=== PATIENT | male | born 1960 | race Caucasian/White ===

== ENCOUNTER 2017-11-25 17:30 | Inpatient (IN) | payer MEDICARE, OTHER ==
--- NOTE | 2017-11-25 17:41 | ED PDOC ---
Arrival/HPI - General Time Seen by Provider: 11/25/17 17:37 Historian: Patient - History of Present Illness Narrative History of Present Illness (Text): 11/25/17 17:41 This 57 yo male with pmh psychiatric illness for many year, presents to this ED by BLS for psychiatric admission. Patient stated he has been hearing voices for 3 days. Patient stated he was seen at [facility] this morning. Patient has not seen psychiatrist for several year, and he also stop Seroquel few years ago. Patient wants to be admitted to psychiatry department , and to be evaluated by psychiatrist. Patient denies HI, paranoia, or illegal drug use. Time/Duration: Other (see hpi) Context: Home Past Medical History - Provider Review Nursing Documentation Reviewed: Yes Family/Social History - Physician Review Nursing Documentation Reviewed: Yes Family/Social History: Other (noncontributory) Allergies/Home Meds Allergies/Adverse Reactions: Allergies Penicillins Allergy (Verified 11/25/17 17:42) SWELLING Home Medications: Home Meds Medication Instructions Recorded Confirmed Montelukast [Singulair] 10 mg PO DAILY 11/25/17 11/25/17 traMADol [Ultram] 50 mg PO TID 11/25/17 11/25/17 Review of Systems - Review of Systems Constitutional: Normal. absent: Fatigue, Weight Change, Fevers Eyes: Normal ENT: Normal Respiratory: Normal Cardiovascular: Normal Gastrointestinal: Normal Genitourinary Male: Normal Musculoskeletal: Normal Skin: Normal Neurological: Normal Endocrine: Normal Hemo/Lymphatic: Normal Psychiatric: Other (see hpi) Physical Exam Vital Signs Temp Pulse Resp BP Pulse Ox 11/25/17 17:52 97.7 F 64 20 160/87 H 96 Temperature: Afebrile Blood Pressure: Normal Pulse: Regular Respiratory Rate: Normal Appearance: Positive for: Well-Appearing, Non-Toxic, Comfortable Pain Distress: None Mental Status: Positive for: Alert and Oriented X 3 - Systems Exam Head: Present: Atraumatic, Normocephalic Pupils: Present: PERRL Extroacular Muscles: Present: EOMI Conjunctiva: Present: Normal Mouth: Present: Moist Mucous Membranes Neck: Present: Normal Range of Motion Respiratory/Chest: Present: Clear to Auscultation, Good Air Exchange. No: Respiratory Distress, Accessory Muscle Use Cardiovascular: Present: Regular Rate and Rhythm, Normal S1, S2. No: Murmurs Abdomen: No: Tenderness, Distention, Peritoneal Signs Back: Present: Normal Inspection Upper Extremity: Present: Normal Inspection. No: Cyanosis, Edema Lower Extremity: Present: Normal Inspection. No: Edema Neurological: Present: GCS=15, CN II-XII Intact, Speech Normal Skin: Present: Warm, Dry, Normal Color. No: Rashes Psychiatric: Present: Alert, Oriented x 3, Depressed Mood, Hallucinations ( auditory), Other ((+) tangential) Medical Decision Making ED Course and Treatment: 11/25/17 18:03 Patient is medically clear for Psychiatric admission Re-evaluation Time: 18:03 Reassessment Condition: Re-examined, Improving,but remains with symptoms Disposition/Present on Arrival - Present on Arrival Any Indicators Present on Arrival: No History of DVT/PE: No History of Uncontrolled Diabetes: No Urinary Catheter: No History of Decub. Ulcer: No - Disposition Have Diagnosis and Disposition been Completed?: Yes Diagnosis: Major depression, Continuous auditory hallucinations Disposition: HOSPITALIZED Disposition Time: 18:40 Patient Plan: Admission Condition: STABLE Discharge Instructions (ExitCare): Depression, Adult (DC) Referrals: Jesse Lagunas MD [Primary Care Provider] - Follow up with primary
[2017-11-25 17:59] VITALS: O2SAT 96
[2017-11-25] MEDS ORDERED: Magnesium Hydroxide Susp 30 ml UD PO PRN (22:30)
[2017-11-25] MEDS ORDERED: Alum-Mag Hydrox-Simethicone Susp (30 mL) PO PRN (22:30)
--- NOTE | 2017-11-26 00:59 | PCM.BM ---
<Juan Richmond - Last Filed: 11/26/17 00:56> Treatment Plan Problems - Problems identified on initial assessmt Visual Hallucinations Date Initiated: 11/25/17 Time Initiated: 20:00 Assessment reference: NA Status: Active Priority: 1 Auditory Hallucinations Date Initiated: 11/25/17 Time Initiated: 20:00 Assessment reference: NA Status: Active Priority: 2 Medication Nonadherence Date Initiated: 11/25/17 Time Initiated: 20:00 Assessment reference: NA Status: Active Priority: 3 Altered Thought Process Date Initiated: 11/25/17 Time Initiated: 20:00 Assessment reference: NA Status: Active Priority: 4 Ineffective Coping Date Initiated: 11/25/17 Time Initiated: 20:00 Assessment reference: NA Status: Active Priority: 5 Treatment assets and liabiliti Patient Assests: cooperative, motivated, self-reliant, ADL independent, physically healthy, negotiates basic needs Patient Liabilities: live alone, financial problems, poor support system, relationship conflicts - Milieu Protocol Maintain good personal hygiene: daily Encourage regular showers, every shift Remind patient to perform daily oral care, every shift Assist patient to perform ADL's Maintain personal safety: every shift Educate patient to report safety concerns to staff, every shift Monitor environment for contraband/sharps Medication safety: Monitor for expected outcome, potential side effects: every shift, Assess barriers to learning: every shift, Assess readiness for medication education: every shift Family Contact Family involvement: Famliy/SO not involved Family contact: Patient declines to allow family contact at present - Goals for Treatment Patient goals for treatment: "Get my head together" Discharge/Continuing Care - Education Needs Education Needs: Patient Medication, Patient Diagnosis/Disease Process, Patient Coping Skills, Patient Placement options, Patient Community resources, Patient Activities of Daily Living, Patient Pain, Patient Nutrition, Patient Health Practices/Safety, Patient Aftercare Safety Plan - Discharge Discharge Criteria: Tolerates medication w/o severe side effects <Preethi Guardado - Last Filed: 11/26/17 14:19> - Diagnosis (1) Schizoaffective disorder Status: Acute <Marleni Diaz - Last Filed: 11/27/17 15:13> Family Contact Family involvement: Famliy/SO not involved
[2017-11-26 07:14] VITALS: RESP 20
[2017-11-26 08:04] LABS: GLUCOSE,FASTING 96 mg/dL (65-110); HDL CHOLESTEROL 50 mg/dL (29-60)
[2017-11-26 08:16] LABS: LDL CHOLESTEROL 98 mg/dL (0-129)
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
--- NOTE | 2017-11-26 21:06 | CON ---
DATE: 11/26/2017 HISTORY OF PRESENT ILLNESS: I saw Darío in the psychiatric floor, resting in bed, I am consulted medically for him. This is a 57-year-old male presented to the emergency room department with hearing voices for three days, also very depressed, very anxious, little paranoid. He has had psychiatric illness for many, many years. HE IS ALLERGIC TO PENICILLIN. He denied any hypertension or diabetes. He takes Singulair and Ultram apparently on the outpatient. He did not tell me any respiratory issues, he probably has asthma. REVIEW OF SYSTEMS: No acute vision or hearing changes, but he is hearing voices. No sore throat. No chest pain. No palpitations. No abdominal pain. He is going to the bathroom well. Skin for the most part is intact. He is anxious. PHYSICAL EXAMINATION: VITAL SIGNS: He has 97.7 temperature, 64 pulse, 20 respiratory rate, 160/87 blood pressure, 96% O2 sat. GENERAL: He is alert, little anxious, nervous, well-appearing, alert and oriented x3. HEENT: Head is atraumatic and normocephalic. Extraocular muscles are intact. Pupils are equal and reactive to light. Throat is moist. NECK: Supple. HEART: Regular rate. Normal S1, S2. LUNGS: Decreased breath sounds, but clear to auscultation. Fair air exchange. ABDOMEN: Soft, nontender. Positive bowel sounds. No guarding. No rebound. No CVA tenderness. EXTREMITIES: No edema. SKIN: For what I could tell from the skin, no rashes or ulcers appreciated. Normal skin turgor. NEUROLOGIC: GCS is 15. Cranial nerves II through XII grossly intact. Speech is normal. He can smile. He can close his eyes tight. He can stick out his tongue. He raises his arms. Neurologically, seems to be okay. Alert and oriented x3, may be a little bit anxious. Does have some auditory hallucinations what I understand so far on testing. LABORATORY DATA: He has a 96 glucose, 67 triglycerides, cholesterol is 169, TSH is 0.94. I have ordered labs. ASSESSMENT AND PLAN: His blood pressure has been up and down, he has 150/72 and went as high as 153/99. I will put him on Norvasc 2.5 and follow his blood pressure, see he goes and will follow. He is here for auditory hallucinations, depression, and now he has got some hypertension. We will follow. Osbaldo Ledezma DO [facility]
[2017-11-27 07:22] LABS: HEMOGLOBIN 15.4 g/dL (14.0-18.0); MEAN CELL VOLUME 84.1 fl (80.0-105.0); MEAN CORPUSCULAR HEMOGLOBIN 29.2 pg (25.0-35.0); MEAN CORPUSCULAR HGB CONC 34.8 g/dl (31.0-37.0); MEAN PLATELET VOLUME 10.3 fl (7.0-11.0); RBC 5.27 10^6/uL (3.5-6.1); RED CELL DISTRIBUTION WIDTH 12.2 % (11.5-14.5); WHITE BLOOD COUNT 7.3 10^3/ul (4.5-11.0)
[2017-11-27 07:50] LABS: ALB/GLOB RATIO 1.6 (1.1-1.8); ALBUMIN 4.5 g/dL (3.0-4.8); ALT/SGPT 30 U/L (7-56); AST/SGOT 22 U/L (17-59); BLOOD UREA NITROGEN 14 mg/dL (7-21); CALCIUM 9.5 mg/dL (8.4-10.5); GFR AFRICAN-AMERICAN > 60; GFR NON-AFRICAN AMERICAN > 60
--- NOTE | 2017-11-27 13:22 | PN ---
DATE: 11/27/2017 SUBJECTIVE: I saw him in the hallway at the psychiatric floor. Tried to get him back to his room to talk, he only wanted to do it in the hallway. He is telling he is having a headache and the Tylenol did not help him. He is on Catapres, Klonopin, Maalox, milk of magnesia, Prozac, Risperdal, Singulair, Sonata, Tylenol and Ultram. He is now telling me he is also going home today. He is eating well, walking well. He states he is feeling better than when he came in. PHYSICAL EXAMINATION: VITAL SIGNS: He has a 97.5 temp, 62 pulse, 128/91 blood pressure, 20 respiratory rate. His blood pressure was as high as 168/116, so the blood pressure is much better. HEENT: His head is atraumatic, normocephalic. HEART: Regular rate. LUNGS: Decreased breath sounds, but clear. ABDOMEN: Soft. EXTREMITIES: No edema. He is on Catapres, which is helping. I am going to call in Cardiology to get their opinion of his high blood pressure and his headache. LABORATORY DATA: He has a 7.3 white count, 15.4 hemoglobin, 44.3 hematocrit with a 225 platelets, 143 sodium, potassium 4, BUN 14, creatinine 0.8, GFR is greater than 60, sugar is 97, calcium is 9.5, total bili is 0.5, AST is 22, ALT is 30, alkaline phosphatase 71, total protein 7.4, TSH is 0.94. RPR was nonreactive. ASSESSMENT AND PLAN: My concern with him is his headache and the blood pressure being still high. He has never been on these kind of medications before and now his blood pressure is extremely high. We will check his labs tomorrow. He tells me he is leaving today. I am not sure if that is true. I gave him some Ultram for the headaches which he requested and has used before and I will consult Cardiology to get their opinion that he is having this hypertension out of blue Osbaldo Ledezma DO [facility] # [id number] MTDD
--- NOTE | 2017-11-27 14:32 | PCM.PYCHPN ---
Psychiatric Progress Note - Psychiatric Progress Note Patient seen today, length of contact: 30min Patient Chief Complaint: "I feel anxious, I need to go home" Problems Identified/Issues Discussed: Suicide/ homicide prevention, past psychiatric h/o, current psychiatric symptoms , medical problems, risk/benefits and alternatives of medications, medications compliance, coping strategies, substance abuse h/o, relapse prevention, importance of follow up with psychiatrist and therapist, discharge plan. Medical Problems: see HPI Diagnostic Results: 11/27/17 07:00 11/27/17 07:00 Lab Results 11/27/17 07:00: Sodium 143, Potassium 4.0, Chloride 105, Carbon Dioxide 25, Anion Gap 17, BUN 14, Creatinine 0.8, Est GFR ( Amer) > 60, Est GFR (Non- Af Amer) > 60, Random Glucose 97, Calcium 9.5, Total Bilirubin 0.5, AST 22, ALT 30, Alkaline Phosphatase 71, Total Protein 7.4, Albumin 4.5, Globulin 2.9, Albumin/Globulin Ratio 1.6 11/27/17 07:00: WBC 7.3, RBC 5.27, Hgb 15.4, Hct 44.3, MCV 84.1, MCH 29.2, MCHC 34.8, RDW 12.2, Plt Count 225, MPV 10.3 11/26/17 07:30: RPR Nonreactive 11/26/17 07:30: TSH 3rd Generation 0.94 11/26/17 07:30: Fasting Glucose 96, Triglycerides 67, Cholesterol 169, LDL Cholesterol Direct 98, HDL Cholesterol 50 Vital Signs Temp Pulse Resp BP Pulse Ox 11/27/17 08:30 62 128/91 H 11/27/17 07:00 97.5 F L 62 20 128/91 H 11/27/17 06:54 97.5 F L 62 20 128/91 H 11/27/17 01:06 90 130/85 11/26/17 18:10 144/85 11/26/17 16:09 168/116 H 11/26/17 16:00 65 159/108 H 11/26/17 11:56 153/99 H 11/26/17 07:13 98.1 F 56 L 20 153/99 H 11/25/17 20:00 18 11/25/17 18:50 97.7 F 72 18 150/72 96 11/25/17 17:52 97.7 F 64 20 160/87 H 96 DSM 5 Symptoms Update: shortly patient is 57 year old -[place] male from [place], history of multiple psychiatric admissions in the past, patient was noncompliant with the medications for at least 5 years, patient came to the [facility] for evaluation of visual and auditory hallucinations, patient was transferred uneventfully yesterday. Patient was not able to contract for safety, requested psychiatric admission, medications adjustment, patient has poor social support, requires further evaluation and stabilization, cannot be maintained as outpatient program. Patient was seen and examined today next to the nursing station. as per staff pt required PRN meds because of anxiety and pt was not able to calm , down. pt presented to be anxious, keep moving, but affect was brighter to compare to the initial assessment. pt was requesting to go home but agreed to stay, pt said that voices are " little better". pt c/o insomnia and inability to relax. pt said that he is not hearing any voices or seeing things "I feel much better" , but pt still guarded, seems to be preoccupied internally. so far pt tolerates meds well, no side effects observed or reported AIMS 0, no EPS. Impression: schizoaffective disorder Medication Change: Yes (klonopin and ambien) Medical Record Reviewed: Yes Consults ordered or reviewed: pt was seen by medical team Mental Status Examination - Cognitive Function Orientation: Person, Place Memory: Impaired Attention: Poor Concentration: Poor Association: Loose Fund of Knowledge: Poor - Mood Mood: Depressed - Affect Affect: Flat - Formal Thought Process Formal Thought Process: Hallucinations, Delusions, Paranoia, Circumstantial - Suicidal Ideation Suicidal Ideation: No - Homicidal Ideation Homicidal Ideation: No Goal/Treatment Plan - Goal/Treatment Plan Need for Continued Stay: Remain at risks for inpatient hospitalization, Severe depression anxiety, Discharge may exacerbated symptoms, Severe functional impairment Progress Toward Problem(s) and Goals/Treatment Plan: Milieu/structure/supportive therapy Medical consult appreciated, see medical team note for more detailed info SW consultation for discharge plan and social issues Med management will d/c abilify Risperdal 1mg po bid for psychosis and mood stabilization Klonopin 1mg twice a day for anxiety Prozac 20 mg by mouth daily for depression and anxiety Sonata d/c ambien 5mg po hs for insomnia as needed Family involvement Follow up on labs Will monitor closely Pt was educated about risk/benefits and alternatives of medications, coping strategies (safety plan, suicide prevention), relapse prevention, importance of follow up with psychiatrist and therapist, stay away from drugs/alcohol/smoking Estimated Date of D/C: 11/29/17
[2017-11-28 07:08] VITALS: BP 113/75; PULSE 60; TEMP 97.9
[2017-11-28 07:25] LABS: HEMOGLOBIN 15.3 g/dL (14.0-18.0); MEAN CORPUSCULAR HEMOGLOBIN 29.8 pg (25.0-35.0); MEAN PLATELET VOLUME 10.1 fl (7.0-11.0); RBC 5.14 10^6/uL (3.5-6.1); RED CELL DISTRIBUTION WIDTH 12.3 % (11.5-14.5); WHITE BLOOD COUNT 6.9 10^3/ul (4.5-11.0)
[2017-11-28 07:39] LABS: ALB/GLOB RATIO 1.6 (1.1-1.8); ALBUMIN 4.5 g/dL (3.0-4.8); ALT/SGPT 40 U/L (7-56); AST/SGOT 25 U/L (17-59); BLOOD UREA NITROGEN 13 mg/dL (7-21); CALCIUM 9.9 mg/dL (8.4-10.5); GFR AFRICAN-AMERICAN > 60; GFR NON-AFRICAN AMERICAN > 60
--- NOTE | 2017-11-28 11:17 | PN ---
DATE: 11/28/2017 SUBJECTIVE: I saw Darío on the fifth floor psych unit. He is doing much better. He tells me he slept very well last night. He feels very rested and he is in good spirits. He is on Ambien, Catapres, Klonopin, Maalox, milk of magnesia, Nicoderm, Prozac, Risperdal, Singulair, Tylenol and Ultram. It is the best day he said he felt in a long time. PHYSICAL EXAMINATION: VITAL SIGNS: He has a 97.9 temp, 60 pulse, 113/75 blood pressure, 20 respiratory rate. HEENT: Head is atraumatic, normocephalic. HEART: Regular rate. LUNGS: Clear to auscultation. ABDOMEN: Soft. EXTREMITIES: No edema. He tells me he is being discharged today. I am waiting to see how he does. LABORATORY DATA: He has a 6.9 white count, 15.3 hemoglobin, 43.7 hematocrit with a 210 platelets. 142 sodium, potassium 4.4, BUN 30, creatinine 0.8, GFR is greater than 60, sugar is 92, calcium is 9.9, total bili is 0.4, AST is 25, ALT is 40, alk phos 63, total protein 7.3, albumin 4.5. TSH is 0.94. RPR is nonreactive. ASSESSMENT AND PLAN: As per Psychiatry, he has depression, hypertension, auditory hallucinations. I do think he is starting to improve. We will continue to watch. I went over his labs and he did well. Osbaldo Ledezma DO
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
--- NOTE | 2017-11-29 08:26 | CON ---
DATE: 11/28/2017 CARDIOLOGY FOLLOWUP HISTORY OF PRESENT ILLNESS: The patient is a 57-year-old male who was admitted to the [facility] for depression. He was found to be hypertensive. The patient's past medical history is free of cardiac history. No shortness of breath. No chest pain. He does smoke and has possible COPD and is currently on Symbicort. He denies angina and denies shortness of breath. SOCIAL HISTORY: An active smoker. REVIEW OF SYSTEMS: A 14-point review of systems is reviewed in detail. The patient feels fine, no issues at this time. PHYSICAL EXAMINATION: VITAL SIGNS: Blood pressure has been varied from 103-113/75, while on medications blood pressure is in the 60s. NECK: Negative JVD. LUNGS: Without rales. HEART: Reveals S1, S2. EXTREMITIES: Without edema. LABORATORY DATA: Hemoglobin is 15.3. Chemistries, BUN and creatinine unremarkable. Cholesterol is 169. EKG shows normal sinus rhythm with nonspecific ST-T changes. IMPRESSION: 1. Depression, which is better. 2. Hypertension, which is better on medications. 3. Probable chronic obstructive pulmonary disease. 4. Nicotine addiction. 5. Abnormal EKG with nonspecific ST-T changes. PLAN: Given these findings, I will decrease his clonidine to 0.1 b.i.d. I have discussed with the patient about the need to stop smoking. Alan Johnson MD
== END 2017-11-28 13:53 | disposition home or self-care (01) | DRG 885 ==
LOC: ED 17:30 → ERH 18:36 → PSYC 19:26
PROVIDERS: ADMIT Psychiatry & Neurology Psychiatry; ATTEND Psychiatry & Neurology Psychiatry
PROC: GZ3ZZZZ Medication Management (ICD-10-PCS; principal; 2017-11-26)
DX: F25.9 Schizoaffective disorder, unspecified (principal); Z91.14 Patient's other noncompliance with medication regimen; K21.9 Gastro-esophageal reflux disease without esophagitis; J45.909 Unspecified asthma, uncomplicated; G43.909 Migraine, unspecified, not intractable, without status migrainosus; I10 Essential (primary) hypertension; F12.10 Cannabis abuse, uncomplicated; G47.00 Insomnia, unspecified; R94.31 Abnormal electrocardiogram [ECG] [EKG]; F17.210 Nicotine dependence, cigarettes, uncomplicated; Z88.0 Allergy status to penicillin